=== PATIENT | female | born 1990 | race Caucasian/White ===

== ENCOUNTER 2017-09-28 15:41 | Inpatient (IN) | payer OTHER ==
[2017-09-28 16:25] VITALS: BMI 26.3
[2017-09-28 16:41] LABS: Amnisure Test RUPTURE DETECTED (No Rupture)
[2017-09-28] MEDS ORDERED: Promethazine HCl 25 MG/ML VIAL IM PRN (17:02)
[2017-09-28] MEDS ORDERED: Ondansetron HCl/PF 4 MG/2 ML Vial IVP PRN (17:02)
[2017-09-28] MEDS ORDERED: Ibuprofen 800 MG TAB PO PRN (17:02)
[2017-09-28] MEDS ORDERED: HYDROcodone/Acetaminophen 5/325 mg Tablet PO PRN ×2 (17:02)
[2017-09-28] MEDS ORDERED: Acetaminophen 500 MG TAB PO PRN (17:02)
[2017-09-28] MEDS ORDERED: LR / Pitocin 40 units/1000 ml 1,000 ML IV PRN (17:02)
[2017-09-28] MEDS ORDERED: Lidocaine 1% (PF) 30 ML VIAL SC PRN (17:02)
[2017-09-28] MEDS ORDERED: Diphenoxylate HCl/Atropine Tablet PO PRN ×2 (17:02)
[2017-09-28] MEDS ORDERED: Misoprostol 200 MCG TAB PR PRN (17:02)
[2017-09-28] MEDS ORDERED: Zolpidem Tartrate 5 MG TAB PO PRN (17:02)
[2017-09-28] MEDS ORDERED: Docusate 100 MG CAP PO PRN (17:02)
[2017-09-28 19:04] LABS: Hematocrit 37.7 % (36.0-47.0); Mean Platelet Volume 9.1 fL (7.4-10.4); White Blood Cell (WBC) Count 12.1 thou/uL (4.8-10.8)
[2017-09-29] MEDS ORDERED: Lanolin Ointment 7 GM TUBE TOP PRN (05:49)
[2017-09-29] MEDS ORDERED: Zolpidem Tartrate 5 MG TAB PO PRN (05:49)
[2017-09-29] MEDS ORDERED: Bisacodyl 10 MG SUPP PR PRN (05:49)
[2017-09-29] MEDS ORDERED: Adacel (T-DAP) 0.5 ML VIAL IM ONE (05:49)
[2017-09-29] MEDS ORDERED: diphenhydrAMINE 25 MG CAP PO PRN (05:49)
[2017-09-29] MEDS ORDERED: Ondansetron HCl/PF 4 MG/2 ML Vial IVP PRN (05:49)
[2017-09-29] MEDS ORDERED: Milk Of Magnesia 30 ML UDCUP PO PRN (05:49)
[2017-09-29] MEDS ORDERED: Preparation H Ointment 28 GM TUBE PR PRN (05:49)
[2017-09-29] MEDS ORDERED: Acetaminophen/Codeine 30-300mg Tablet PO PRN ×2 (05:49)
[2017-09-29] MEDS ORDERED: Misoprostol 200 MCG TAB VAG SCH (06:00)
[2017-09-29] MEDS ORDERED: LR / Pitocin 40 units/1000 ml 1,000 ML IV SCH (06:00)
[2017-09-29] MEDS: Ibuprofen 800 MG TAB PO SCH ×2 (10:02→15:33)
[2017-09-29] MEDS: Ferrous Sulfate 325 MG TAB PO SCH ×2 (10:02→17:55)
[2017-09-29] MEDS: Lactated Ringer's 1,000 ML IV SCH (10:12)
[2017-09-29] MEDS: Docusate Calcium (SURFAK) 240 MG CAP PO SCH (10:42)
[2017-09-29] MEDS: Prenatal Vitamin 1 TAB PO SCH (10:42)
[2017-09-30] MEDS: Docusate Calcium (SURFAK) 240 MG CAP PO SCH ×3 (00:17→21:21)
[2017-09-30] MEDS: Ibuprofen 800 MG TAB PO SCH ×4 (00:17→21:21)
[2017-09-30] MEDS: Ferrous Sulfate 325 MG TAB PO SCH ×2 (09:40→17:55)
[2017-09-30] MEDS: Prenatal Vitamin 1 TAB PO SCH (09:50)
[2017-10-01] MEDS: Ibuprofen 800 MG TAB PO SCH ×2 (06:06→14:23)
[2017-10-01 07:53] VITALS: BP 115/61; TEMP 98.2
[2017-10-01] MEDS: Ferrous Sulfate 325 MG TAB PO SCH ×2 (08:00→18:23)
[2017-10-01] MEDS: Docusate Calcium (SURFAK) 240 MG CAP PO SCH (10:10)
[2017-10-01] MEDS: Prenatal Vitamin 1 TAB PO SCH (10:12)
== END 2017-10-01 18:15 | disposition home or self-care (01) | DRG 775 ==
LOC: L&D/OP 15:41 → L&D-LIB 19:12 → 3SW 09-29 10:01
PROVIDERS: ADMIT Obstetrics & Gynecology; ATTEND Obstetrics & Gynecology
PROC: 10E0XZZ Delivery of Products of Conception, External Approach (ICD-10-PCS; principal; 2017-09-29)
DX: O80 Encounter for full-term uncomplicated delivery (principal); Z37.0 Single live birth; Z3A.39 39 weeks gestation of pregnancy
CPT/HCPCS: 36415; 84112; 85027; 86780; 87340; J2001